=== PATIENT | female | born 1945 | race Caucasian/White ===

== ENCOUNTER → 2023-09-25 11:15 | Outpatient (REF) | payer OTHER, SELFPAY | LOC: DHCBC HW 11:15 | PROVIDERS: ATTENDING PHYSICIAN Internal Medicine Cardiovascular Disease; FAMILY PHYSICIAN Internal Medicine | DX: I34.0 Nonrheumatic mitral (valve) insufficiency (principal) | CPT/HCPCS: 93306 ==